=== PATIENT | male | born 1965 | race Caucasian/White ===

== ENCOUNTER 2023-07-05 11:28 | Inpatient (IN) ==
[2023-07-05 12:24] LABS: INR 1.38 (0.83-1.13)
[2023-07-05 12:27] LABS: Direct Bilirubin 2.9 mg/dL (0.03-0.18); Lipase 87 U/L (11.0-82.0)
[2023-07-05 12:46] LABS: Albumin 3.1 g/dL (3.2-5.2); Albumin/Globulin Ratio 0.9 (1-3); Calcium 8.1 mg/dL (8.6-10.3); Creatinine, Serum 0.76 mg/dL (0.67-1.17); Globulin 3.6 g/dL (2-4); Potassium 3.6 mmol/L (3.5-5.0); Total Bilirubin 6.3 mg/dL (0.2-1.0); Total Protein 6.7 g/dL (6.4-8.9); eGFR CKD-EPI 105.5 (>60)
[2023-07-05] MEDS ORDERED: Iohexol 350 (CONTRAST) 500 ML MDV IV ONE (12:53)
[2023-07-05 13:14] LABS: Hematocrit 29.1 % (38-53); Hemoglobin 10.2 g/dL (13.2-16.3); Mean Corpuscular Hemoglobin 37.9 pg (27-33); Mean Corpuscular Hgb Conc 35.1 g/dL (31-36); Mean Corpuscular Volume 108.1 fL (80-97); Mean Platelet Volume 9.6 fL (7.5-11.2); Platelet Count 119 10^3/uL (150-450); Red Blood Count 2.69 10^6/uL (4.06-5.63); Red Cell Distribution Width 15.3 % (12-17); White Blood Count 13.5 10^3/uL (3.6-10.2)
[2023-07-05 13:22] LABS: Alcohol, S < 13 mg/dL (<13)
[2023-07-05] MEDS ORDERED: Piperacillin/Tazobac 3.375 BAG 3.375 GM/100 ML BAG IV ONE (13:53)
[2023-07-05 14:09] LABS: ABS Basophils 0.2 10^3/uL (0.0-0.1); ABS Eosinophils 0.1 10^3/uL (0.0-0.5); ABS Lymphocytes 2.1 10^3/uL (1.0-4.8); ABS Neutrophils 10.1 10^3/uL (1.5-7.6); ABS Nucleated RBC 0.03 10^3/ul; Eosinophil % 0.7 %; Lymphocyte % 15.4 %; Macrocytosis 1+; Nucleated Red Blood Cells % 0.3 %/100WBC (0.0-0.8)
[2023-07-05] MEDS ORDERED: Thiamine 100 MG/ML 2 ml VIAL 500 MG in NS 0.9% 250 ml 250 ML IV ONE (14:29)
[2023-07-05] MEDS ORDERED: Ondansetron 4 mg VIAL 2 MG/ML 2 ml VIAL IV PRN (14:29)
[2023-07-05] MEDS ORDERED: Nicotine GUM 4MG FRUIT FLAVOR PO PRN (14:53)
[2023-07-05] MEDS ORDERED: Lactated Ringers 1000 ml BAG 1,000 ML IV SCH (15:00)
[2023-07-05 15:03] LABS: Phosphorus 2.1 mg/dL (2.5-5.0)
[2023-07-05] MEDS: Pantoprazole VIAL 40 MG VIAL IV SCH (15:30)
[2023-07-05] MEDS ORDERED: cefTRIAXone 1 gm/50 mL D5W 1 GM/50 ML BAG IV SCH (16:00)
[2023-07-05 18:46] LABS: Hematocrit 23.4 % (38-53); Hemoglobin 8.3 g/dL (13.2-16.3)
[2023-07-05 19:27] LABS: Anion Gap 7 mmol/L (2-16); Blood Urea Nitrogen 10 mg/dL (6-24); CO2 Carbon Dioxide 23 mmol/L (22-32); Calcium 7.2 mg/dL (8.6-10.3); Chloride 89 mmol/L (101-111); Creatinine, Serum 0.79 mg/dL (0.67-1.17); Glucose 128 mg/dL (70-100); Sodium 119 mmol/L (135-145); eGFR CKD-EPI 104.3 (>60)
[2023-07-05] MEDS ORDERED: Lactated Ringers 1000 ml BAG 500 ML IV ONE (19:50)
[2023-07-05 22:58] LABS: Calcium 7.3 mg/dL (8.6-10.3); Creatinine, Serum 0.81 mg/dL (0.67-1.17); Potassium 3.5 mmol/L (3.5-5.0); eGFR CKD-EPI 103.5 (>60)
[2023-07-05] MEDS ORDERED: Potassium Chloride LIQUID 20 MEQ/15 ML LIQUID PO ONE (23:18)
[2023-07-06 00:01] LABS: Hepatitis B Surface Antigen Nonreactive (Nonreactive)
[2023-07-06 00:06] LABS: Hepatitis A Ab IgM Negative (Negative)
[2023-07-06 00:07] LABS: Hepatitis B Core IgM Nonreactive (Nonreactive)
[2023-07-06 00:18] LABS: Hepatitis C Antibody Negative (Negative)
[2023-07-06 02:05] LABS: Hemoglobin 7.8 g/dL (13.2-16.3)
[2023-07-06] MEDS: Pantoprazole VIAL 40 MG VIAL IV SCH ×2 (02:21→14:59)
[2023-07-06 02:23] LABS: Calcium 7.3 mg/dL (8.6-10.3); Creatinine, Serum 0.79 mg/dL (0.67-1.17); Potassium 4.6 mmol/L (3.5-5.0); eGFR CKD-EPI 104.3 (>60)
[2023-07-06] MEDS ORDERED: Lactated Ringers 1000 ml BAG 500 ML IV SCH (05:00)
[2023-07-06 05:19] LABS: Albumin 2.4 g/dL (3.2-5.2); Albumin/Globulin Ratio 0.9 (1-3); Calcium 7.3 mg/dL (8.6-10.3); Creatinine, Serum 0.9 mg/dL (0.67-1.17); Globulin 2.8 g/dL (2-4); Magnesium 1.9 mg/dL (1.9-2.7); Phosphorus 1.5 mg/dL (2.5-5.0); Potassium 4.4 mmol/L (3.5-5.0); Total Bilirubin 5.5 mg/dL (0.2-1.0); Total Protein 5.2 g/dL (6.4-8.9); eGFR CKD-EPI 100.2 (>60)
[2023-07-06 05:44] LABS: ABS Basophils 0.1 10^3/uL (0.0-0.1); ABS Eosinophils 0.1 10^3/uL (0.0-0.5); ABS Lymphocytes 1.6 10^3/uL (1.0-4.8); ABS Monocytes 0.8 10^3/uL (0.0-1.1); ABS Neutrophils 7.1 10^3/uL (1.5-7.6); ABS Nucleated RBC 0.03 10^3/ul; Eosinophil % 0.8 %; Hematocrit 21.1 % (38-53); Hemoglobin 7.5 g/dL (13.2-16.3); Lymphocyte % 16.8 %; Mean Corpuscular Hemoglobin 38.1 pg (27-33); Mean Corpuscular Hgb Conc 35.3 g/dL (31-36); Mean Corpuscular Volume 107.8 fL (80-97); Mean Platelet Volume 9.3 fL (7.5-11.2); Nucleated Red Blood Cells % 0.3 %/100WBC (0.0-0.8); Platelet Count 81 10^3/uL (150-450); Red Blood Count 1.96 10^6/uL (4.06-5.63); Red Cell Distribution Width 14.6 % (12-17); White Blood Count 9.7 10^3/uL (3.6-10.2)
[2023-07-06] MEDS ORDERED: Sodium Phosphate IV 45 MMOL in NS 0.9% 250 ml 250 ML IV ONE (05:50)
[2023-07-06] MEDS ORDERED: Norepinephrine 4 MG/250mL D5W 4,000 MCG/250 ML BAG IV ONE (05:52)
[2023-07-06] MEDS ORDERED: Norepinephrine 4 MG/250mL D5W 4,000 MCG/250 ML BAG IV SCH (06:00)
[2023-07-06 11:46] LABS: ABS Basophils 0.2 10^3/uL (0.0-0.1); ABS Eosinophils 0.1 10^3/uL (0.0-0.5); ABS Lymphocytes 1.9 10^3/uL (1.0-4.8); ABS Monocytes 1.2 10^3/uL (0.0-1.1); ABS Neutrophils 9.7 10^3/uL (1.5-7.6); ABS Nucleated RBC 0.03 10^3/ul; Eosinophil % 0.7 %; Hematocrit 23.5 % (38-53); Hemoglobin 8.2 g/dL (13.2-16.3); Lymphocyte % 14.3 %; Mean Corpuscular Hemoglobin 37.7 pg (27-33); Mean Corpuscular Hgb Conc 34.7 g/dL (31-36); Mean Corpuscular Volume 108.7 fL (80-97); Mean Platelet Volume 9.2 fL (7.5-11.2); Nucleated Red Blood Cells % 0.2 %/100WBC (0.0-0.8); Platelet Count 102 10^3/uL (150-450); Red Blood Count 2.17 10^6/uL (4.06-5.63); Red Cell Distribution Width 15.2 % (12-17)
[2023-07-06 12:01] LABS: Calcium 7.3 mg/dL (8.6-10.3); Creatinine, Serum 0.81 mg/dL (0.67-1.17); Phosphorus 6.9 mg/dL (2.5-5.0); Potassium 3.6 mmol/L (3.5-5.0); eGFR CKD-EPI 103.5 (>60)
[2023-07-06 13:02] LABS: Osmolality Serum 252 mOsm/kg (275-295)
[2023-07-06] MEDS: CALCIUM GLUCONATE 1GM/50ML NS 1 GM/50 ML BAG IV ONE ×2 (13:39→14:59)
[2023-07-06] MEDS: cefTRIAXone 2 gm/50 mL D5W 2 GM/50 ML BAG IV SCH (13:41)
[2023-07-06] MEDS ORDERED: Potassium Chlor 20 meq TAB.ER PO ONE (14:02)
[2023-07-06 15:52] LABS: Calcium 6.9 mg/dL (8.6-10.3); Creatinine, Serum 0.74 mg/dL (0.67-1.17); Potassium 3.4 mmol/L (3.5-5.0); eGFR CKD-EPI 106.3 (>60)
[2023-07-06] MEDS: Lidocaine PATCH 4% TOPICAL PRN (16:56)
[2023-07-06 17:17] LABS: Urine Osmo 353 mOsm/kg (150-1150)
[2023-07-06 19:36] LABS: ABS Basophils 0.2 10^3/uL (0.0-0.1); ABS Eosinophils 0.1 10^3/uL (0.0-0.5); ABS Lymphocytes 1.5 10^3/uL (1.0-4.8); ABS Monocytes 0.9 10^3/uL (0.0-1.1); ABS Neutrophils 9.2 10^3/uL (1.5-7.6); ABS Nucleated RBC 0.05 10^3/ul; Eosinophil % 0.6 %; Hematocrit 21.6 % (38-53); Hemoglobin 7.5 g/dL (13.2-16.3); Lymphocyte % 12.8 %; Mean Corpuscular Hemoglobin 37.5 pg (27-33); Mean Corpuscular Hgb Conc 34.6 g/dL (31-36); Mean Corpuscular Volume 108.4 fL (80-97); Nucleated Red Blood Cells % 0.4 %/100WBC (0.0-0.8); Platelet Count 89 10^3/uL (150-450); Red Blood Count 1.99 10^6/uL (4.06-5.63); Red Cell Distribution Width 15.5 % (12-17); White Blood Count 11.9 10^3/uL (3.6-10.2)
[2023-07-07] MEDS: Pantoprazole VIAL 40 MG VIAL IV SCH ×2 (03:15→15:08)
[2023-07-07 04:44] LABS: ABS Basophils 0.1 10^3/uL (0.0-0.1); ABS Eosinophils 0.1 10^3/uL (0.0-0.5); ABS Lymphocytes 2.2 10^3/uL (1.0-4.8); ABS Monocytes 1.1 10^3/uL (0.0-1.1); ABS Neutrophils 8.1 10^3/uL (1.5-7.6); ABS Nucleated RBC 0.05 10^3/ul; Hematocrit 20.7 % (38-53); Hemoglobin 7.2 g/dL (13.2-16.3); Lymphocyte % 18.8 %; Mean Corpuscular Hemoglobin 37.8 pg (27-33); Mean Corpuscular Hgb Conc 34.7 g/dL (31-36); Mean Platelet Volume 9.3 fL (7.5-11.2); Nucleated Red Blood Cells % 0.4 %/100WBC (0.0-0.8); Platelet Count 93 10^3/uL (150-450); Red Cell Distribution Width 15.5 % (12-17); White Blood Count 11.6 10^3/uL (3.6-10.2)
[2023-07-07 04:49] LABS: Calcium 7.4 mg/dL (8.6-10.3); Creatinine, Serum 0.77 mg/dL (0.67-1.17); Magnesium 1.8 mg/dL (1.9-2.7); Potassium 3.4 mmol/L (3.5-5.0); eGFR CKD-EPI 105.1 (>60)
[2023-07-07] MEDS ORDERED: Magnesium Sulfate 2 gm BAG 2 GM/50 ML BAG IVPB ONE (06:50)
[2023-07-07] MEDS ORDERED: Potassium EFFERVES 25 meq TAB PO ONE (07:46)
[2023-07-07] MEDS: KCL 20 MEQ/100 ML IVPREMIX 20 MEQ/100 ML BAG IV SCH ×3 (09:23→13:46)
[2023-07-07] MEDS: cefTRIAXone 2 gm/50 mL D5W 2 GM/50 ML BAG IV SCH (13:03)
[2023-07-07] MEDS ORDERED: PEG 3000 GI LAVAGE 1 GALLON PO ONE (14:00)
[2023-07-07 14:04] LABS: Hematocrit 20.3 % (38-53); Mean Corpuscular Hgb Conc 34.7 g/dL (31-36); Mean Corpuscular Volume 109.5 fL (80-97); Mean Platelet Volume 9.8 fL (7.5-11.2); Platelet Count 131 10^3/uL (150-450); Red Blood Count 1.85 10^6/uL (4.06-5.63); Red Cell Distribution Width 15.6 % (12-17); White Blood Count 13.4 10^3/uL (3.6-10.2)
[2023-07-07 15:05] LABS: ABS Basophils 0.2 10^3/uL (0.0-0.1); ABS Eosinophils 0.1 10^3/uL (0.0-0.5); ABS Neutrophils 10.1 10^3/uL (1.5-7.6); ABS Nucleated RBC 0.07 10^3/ul; Eosinophil % 0.6 %; Lymphocyte % 14.7 %; Nucleated Red Blood Cells % 0.5 %/100WBC (0.0-0.8)
[2023-07-07 22:07] LABS: Hematocrit 25.9 % (38-53)
[2023-07-07 22:11] LABS: Hematocrit 26.4 % (38-53); Hemoglobin 9.2 g/dL (13.2-16.3); Mean Corpuscular Hemoglobin 37.2 pg (27-33); Mean Corpuscular Hgb Conc 34.9 g/dL (31-36); Mean Corpuscular Volume 106.6 fL (80-97); Mean Platelet Volume 8.7 fL (7.5-11.2); Platelet Count 110 10^3/uL (150-450); Red Blood Count 2.48 10^6/uL (4.06-5.63); White Blood Count 14.4 10^3/uL (3.6-10.2)
[2023-07-07 22:23] LABS: Calcium 7.3 mg/dL (8.6-10.3); Creatinine, Serum 0.72 mg/dL (0.67-1.17); Magnesium 2.2 mg/dL (1.9-2.7); Potassium 3.7 mmol/L (3.5-5.0); eGFR CKD-EPI 107.2 (>60)
[2023-07-08] MEDS: Pantoprazole VIAL 40 MG VIAL IV SCH ×2 (04:38→15:23)
[2023-07-08 05:05] LABS: Hematocrit 23.3 % (38-53); Hemoglobin 8.2 g/dL (13.2-16.3); Mean Corpuscular Hemoglobin 37.5 pg (27-33); Mean Corpuscular Hgb Conc 35.2 g/dL (31-36); Mean Corpuscular Volume 106.6 fL (80-97); Mean Platelet Volume 9.1 fL (7.5-11.2); Platelet Count 98 10^3/uL (150-450); Red Blood Count 2.19 10^6/uL (4.06-5.63); Red Cell Distribution Width 16.8 % (12-17); White Blood Count 11.7 10^3/uL (3.6-10.2)
[2023-07-08 05:06] LABS: ABS Basophils 0.1 10^3/uL (0.0-0.1); ABS Eosinophils 0.1 10^3/uL (0.0-0.5); ABS Lymphocytes 2.4 10^3/uL (1.0-4.8); ABS Monocytes 1.2 10^3/uL (0.0-1.1); ABS Nucleated RBC 0.06 10^3/ul; Eosinophil % 0.9 %; Lymphocyte % 20.3 %; Nucleated Red Blood Cells % 0.5 %/100WBC (0.0-0.8)
[2023-07-08 05:12] LABS: ALT 67 U/L (7-52); AST 182 U/L (13-39); Albumin 2.4 g/dL (3.2-5.2); Albumin/Globulin Ratio 0.9 (1-3); Alkaline Phosphatase 113 U/L (35-149); Anion Gap 8 mmol/L (2-16); Blood Urea Nitrogen 8 mg/dL (6-24); CO2 Carbon Dioxide 23 mmol/L (22-32); Calcium 7.1 mg/dL (8.6-10.3); Chloride 94 mmol/L (101-111); Creatinine, Serum 0.67 mg/dL (0.67-1.17); Globulin 2.7 g/dL (2-4); Glucose 85 mg/dL (70-100); Magnesium 2.2 mg/dL (1.9-2.7); Potassium 3.4 mmol/L (3.5-5.0); Sodium 125 mmol/L (135-145); Total Protein 5.1 g/dL (6.4-8.9); eGFR CKD-EPI 109.6 (>60)
[2023-07-08 05:33] LABS: INR 1.56 (0.83-1.13)
[2023-07-08 06:05] LABS: Folate 6.25 ng/mL (5.90-24.80)
[2023-07-08 06:06] LABS: Vitamin B12 > 1450 pg/mL (180-914)
[2023-07-08] MEDS: KCL 20 MEQ/100 ML IVPREMIX 20 MEQ/100 ML BAG IV SCH ×2 (08:17→12:55)
[2023-07-08] MEDS: cefTRIAXone 2 gm/50 mL D5W 2 GM/50 ML BAG IV SCH (12:57)
[2023-07-08] MEDS ORDERED: Lidocaine 2% PF 5 ML VIAL ONE (15:29)
[2023-07-08] MEDS ORDERED: Phenylephrine 40 mcg/mL 10mL (400mcg) SYRINGE ONE (16:06)
[2023-07-09] MEDS: Pantoprazole VIAL 40 MG VIAL IV SCH ×2 (02:36→14:11)
[2023-07-09 03:08] LABS: ABS Basophils 0.1 10^3/uL (0.0-0.1); ABS Eosinophils 0.1 10^3/uL (0.0-0.5); ABS Lymphocytes 2.1 10^3/uL (1.0-4.8); ABS Monocytes 1.2 10^3/uL (0.0-1.1); ABS Neutrophils 8.7 10^3/uL (1.5-7.6); ABS Nucleated RBC 0.04 10^3/ul; Eosinophil % 0.8 %; Hematocrit 23.5 % (38-53); Hemoglobin 8.1 g/dL (13.2-16.3); Lymphocyte % 16.9 %; Mean Corpuscular Hemoglobin 37.4 pg (27-33); Mean Corpuscular Hgb Conc 34.7 g/dL (31-36); Mean Corpuscular Volume 107.6 fL (80-97); Mean Platelet Volume 8.9 fL (7.5-11.2); Nucleated Red Blood Cells % 0.3 %/100WBC (0.0-0.8); Platelet Count 110 10^3/uL (150-450); Red Blood Count 2.18 10^6/uL (4.06-5.63); Red Cell Distribution Width 16.7 % (12-17); White Blood Count 12.1 10^3/uL (3.6-10.2)
[2023-07-09 03:14] LABS: Albumin 2.4 g/dL (3.2-5.2); Albumin/Globulin Ratio 0.9 (1-3); Calcium 7.2 mg/dL (8.6-10.3); Creatinine, Serum 0.77 mg/dL (0.67-1.17); Globulin 2.8 g/dL (2-4); Potassium 3.8 mmol/L (3.5-5.0); Total Bilirubin 2.9 mg/dL (0.2-1.0); Total Protein 5.2 g/dL (6.4-8.9); eGFR CKD-EPI 105.1 (>60)
[2023-07-09 03:51] LABS: INR 1.56 (0.83-1.13)
[2023-07-09] MEDS ORDERED: Potassium Chlor 20 meq TAB.ER PO ONE (08:14)
[2023-07-09] MEDS: cefTRIAXone 2 gm/50 mL D5W 2 GM/50 ML BAG IV SCH (13:13)
[2023-07-09 14:54] LABS: Calcium 7.2 mg/dL (8.6-10.3); Creatinine, Serum 0.84 mg/dL (0.67-1.17); Potassium 3.8 mmol/L (3.5-5.0); eGFR CKD-EPI 102.3 (>60)
[2023-07-09] MEDS: Lidocaine PATCH 4% TOPICAL PRN (20:41)
[2023-07-10] MEDS: Pantoprazole VIAL 40 MG VIAL IV SCH ×2 (03:04→14:11)
[2023-07-10 06:51] LABS: ABS Basophils 0.1 10^3/uL (0.0-0.1); ABS Eosinophils 0.1 10^3/uL (0.0-0.5); ABS Monocytes 0.8 10^3/uL (0.0-1.1); ABS Neutrophils 7.2 10^3/uL (1.5-7.6); ABS Nucleated RBC 0.01 10^3/ul; Eosinophil % 1.1 %; Hematocrit 23.4 % (38-53); Hemoglobin 8.2 g/dL (13.2-16.3); Lymphocyte % 19.7 %; Mean Corpuscular Hemoglobin 37.9 pg (27-33); Mean Corpuscular Hgb Conc 34.9 g/dL (31-36); Mean Corpuscular Volume 108.6 fL (80-97); Mean Platelet Volume 8.4 fL (7.5-11.2); Nucleated Red Blood Cells % 0.1 %/100WBC (0.0-0.8); Platelet Count 92 10^3/uL (150-450); Red Blood Count 2.15 10^6/uL (4.06-5.63); Red Cell Distribution Width 16.9 % (12-17); White Blood Count 10.2 10^3/uL (3.6-10.2)
[2023-07-10 06:59] LABS: INR 1.55 (0.83-1.13)
[2023-07-10 07:10] LABS: Albumin 2.3 g/dL (3.2-5.2); Albumin/Globulin Ratio 0.8 (1-3); Calcium 7.3 mg/dL (8.6-10.3); Creatinine, Serum 0.88 mg/dL (0.67-1.17); Globulin 2.8 g/dL (2-4); Potassium 4.2 mmol/L (3.5-5.0); Total Bilirubin 2.9 mg/dL (0.2-1.0); Total Protein 5.1 g/dL (6.4-8.9); eGFR CKD-EPI 100.9 (>60)
[2023-07-10] MEDS ORDERED: Propofol 10 MG/ML 20 ML BTL ONE ×2 (09:07→09:38)
[2023-07-10] MEDS ORDERED: Dexamethasone IV 4 MG/ML VIAL 1 ml VIAL ONE (09:07)
[2023-07-10] MEDS ORDERED: Midazolam 2 mg/2 ml VIAL 1 mg/ml 2 ml VIAL (2 mg) ONE (09:07)
[2023-07-10] MEDS ORDERED: Lidocaine 2% PF 5 ML VIAL ONE (09:07)
[2023-07-10] MEDS ORDERED: fentaNYL 250 mcg/5 ml 50 MCG/ML 5 ml VIAL (250 MCG) ONE (09:07)
[2023-07-10] MEDS ORDERED: Rocuronium 50 mg VIAL 10 mg/ml 5 ml VIAL (50 mg) ONE ×2 (09:07→12:32)
[2023-07-10] MEDS ORDERED: Ondansetron 4 mg VIAL 2 MG/ML 2 ml VIAL ONE (09:07)
[2023-07-10] MEDS ORDERED: Bupivacaine 0.25% SDV 30 ML ONE (12:40)
[2023-07-10] MEDS ORDERED: Methylene Blue 1% (ANTIDOTE) 10 MG/ML 1 ML SDV VIAL IVPB ONE (12:40)
[2023-07-10] MEDS ORDERED: Gelfoam Sponge SIZE 100 SPONGE ONE (12:40)
[2023-07-10] MEDS ORDERED: Bacitracin OINTMENT TUBE ONE (12:40)
[2023-07-10] MEDS: cefTRIAXone 2 gm/50 mL D5W 2 GM/50 ML BAG IV SCH (14:21)
[2023-07-10] MEDS ORDERED: Ketorolac 10 mg TAB (NF) PO PRN (23:34)
[2023-07-11] MEDS: Pantoprazole VIAL 40 MG VIAL IV SCH ×2 (03:29→14:15)
[2023-07-11 06:15] LABS: ABS Basophils 0.1 10^3/uL (0.0-0.1); ABS Eosinophils 0.1 10^3/uL (0.0-0.5); ABS Lymphocytes 1.8 10^3/uL (1.0-4.8); ABS Neutrophils 7.8 10^3/uL (1.5-7.6); ABS Nucleated RBC 0.01 10^3/ul; Eosinophil % 0.8 %; Hemoglobin 8.3 g/dL (13.2-16.3); Lymphocyte % 16.9 %; Mean Corpuscular Hemoglobin 37.9 pg (27-33); Mean Corpuscular Hgb Conc 34.7 g/dL (31-36); Mean Corpuscular Volume 109.5 fL (80-97); Mean Platelet Volume 8.8 fL (7.5-11.2); Nucleated Red Blood Cells % 0.1 %/100WBC (0.0-0.8); Platelet Count 95 10^3/uL (150-450); Red Blood Count 2.19 10^6/uL (4.06-5.63); Red Cell Distribution Width 17.3 % (12-17); White Blood Count 10.8 10^3/uL (3.6-10.2)
[2023-07-11 06:22] LABS: Calcium 7.6 mg/dL (8.6-10.3); Creatinine, Serum 0.82 mg/dL (0.67-1.17); Magnesium 1.9 mg/dL (1.9-2.7); Potassium 4.4 mmol/L (3.5-5.0); eGFR CKD-EPI 103.1 (>60)
[2023-07-11 10:05] LABS: Total Bilirubin 2.8 mg/dL (0.2-1.0)
[2023-07-11 12:40] LABS: INR 1.49 (0.83-1.13)
[2023-07-11] MEDS: cefTRIAXone 2 gm/50 mL D5W 2 GM/50 ML BAG IV SCH (13:23)
[2023-07-11] MEDS: Lidocaine PATCH 4% TOPICAL PRN (17:27)
[2023-07-11 18:03] LABS: Protime (Maddrey) 17.1 seconds (9.5-12.8)
[2023-07-11 18:12] LABS: Total Bilirubin 2.8 mg/dL (0.2-1.0)
[2023-07-12] MEDS ORDERED: HYDROmorphone 0.5 MG/0.5 ML SYRINGE IV SLOW PU ONE (02:00)
[2023-07-12] MEDS: Pantoprazole VIAL 40 MG VIAL IV SCH ×3 (02:22→21:56)
[2023-07-12 06:05] LABS: ABS Basophils 0.2 10^3/uL (0.0-0.1); ABS Eosinophils 0.1 10^3/uL (0.0-0.5); ABS Lymphocytes 2.7 10^3/uL (1.0-4.8); ABS Neutrophils 8.4 10^3/uL (1.5-7.6); ABS Nucleated RBC 0.01 10^3/ul; Eosinophil % 0.9 %; Hematocrit 27.3 % (38-53); Hemoglobin 9.3 g/dL (13.2-16.3); Lymphocyte % 21.7 %; Mean Corpuscular Hemoglobin 37.4 pg (27-33); Mean Corpuscular Hgb Conc 34.2 g/dL (31-36); Mean Corpuscular Volume 109.5 fL (80-97); Mean Platelet Volume 8.4 fL (7.5-11.2); Platelet Count 112 10^3/uL (150-450); Red Blood Count 2.49 10^6/uL (4.06-5.63); Red Cell Distribution Width 18.1 % (12-17); White Blood Count 12.4 10^3/uL (3.6-10.2)
[2023-07-12 06:20] LABS: Calcium 8.1 mg/dL (8.6-10.3); Creatinine, Serum 0.86 mg/dL (0.67-1.17); Magnesium 2.1 mg/dL (1.9-2.7); Potassium 3.9 mmol/L (3.5-5.0); eGFR CKD-EPI 101.6 (>60)
[2023-07-12] MEDS: cefTRIAXone 2 gm/50 mL D5W 2 GM/50 ML BAG IV SCH (13:57)
[2023-07-12] MEDS: Lidocaine PATCH 4% TOPICAL PRN (14:00)
[2023-07-12 18:57] LABS: Albumin 2.8 g/dL (3.2-5.2); Total Protein 6.2 g/dL (6.4-8.9)
[2023-07-13 02:39] LABS: Body Fluid Total Nucleated 50 /mcL
[2023-07-13 03:29] LABS: Body Fluid Mono 62 %; Body Fluid Other Cells 14; Body Fluid Source Peritonial Fluid; Body Fluid Total Cells Counted 200
[2023-07-13 03:30] LABS: Body Fluid Appearance Clear; Body Fluid Color Yellow
[2023-07-13 07:46] LABS: ABS Basophils 0.2 10^3/uL (0.0-0.1); ABS Eosinophils 0.1 10^3/uL (0.0-0.5); ABS Lymphocytes 2.9 10^3/uL (1.0-4.8); ABS Monocytes 1.3 10^3/uL (0.0-1.1); ABS Neutrophils 9.3 10^3/uL (1.5-7.6); ABS Nucleated RBC 0.04 10^3/ul; Eosinophil % 0.7 %; Hematocrit 26.1 % (38-53); Hemoglobin 8.9 g/dL (13.2-16.3); Lymphocyte % 21.1 %; Mean Corpuscular Hemoglobin 37.5 pg (27-33); Mean Corpuscular Volume 110.1 fL (80-97); Mean Platelet Volume 8.7 fL (7.5-11.2); Nucleated Red Blood Cells % 0.3 %/100WBC (0.0-0.8); Platelet Count 111 10^3/uL (150-450); Red Blood Count 2.37 10^6/uL (4.06-5.63); White Blood Count 13.8 10^3/uL (3.6-10.2)
[2023-07-13 07:48] LABS: Albumin 2.4 g/dL (3.2-5.2); Albumin/Globulin Ratio 0.8 (1-3); Calcium 7.7 mg/dL (8.6-10.3); Creatinine, Serum 0.93 mg/dL (0.67-1.17); Globulin 2.9 g/dL (2-4); Magnesium 1.9 mg/dL (1.9-2.7); Potassium 4.5 mmol/L (3.5-5.0); Total Protein 5.3 g/dL (6.4-8.9); eGFR CKD-EPI 96.4 (>60)
[2023-07-13 10:00] VITALS: BP 104/48
[2023-07-13] MEDS: Pantoprazole VIAL 40 MG VIAL IV SCH (10:24)
[2023-07-14 12:59] LABS: BF PH 7.7
[2023-07-14 13:24] LABS: Albumin, BF 0.3 g/dL; Fluid Type, Albumin PERITONEAL FLUID; Fluid Type, Amylase PERITONEAL FLUID; Fluid Type: PERITONEAL FLUID; Glucose, BF 122 mg/dL
[2023-07-14 13:26] LABS: Fluid Type, Protein, Total PERITONEAL FLUID; Total Protein, BF 0.3 g/dL
[2023-07-14 14:32] LABS: Fluid Type: PERITONEAL FLUID; Triglycerides (BF) 58 mg/dL
[2023-07-14 14:54] LABS: Body Fluid Bilirubin 0.1 mg/dL; Fluid Type PERITONEAL FLUID
== END 2023-07-13 13:01 | disposition left against medical advice (07) | DRG 280 ==
LOC: ED 11:28 → EDHOLD 14:29 → SUATTDRO 14:29 → ICU 17:38 → MED 07-09 16:58
PROVIDERS: ADMIT Student in an Organized Health Care Education/Training Program; ATTEND Hospitalist